=== PATIENT | female | born 2005 | race Caucasian/White ===

== ENCOUNTER 2024-10-18 17:23 | Outpatient (CLI) | payer BC, SELFPAY ==
--- OUTSIDE RECORDS SUMMARY | 2024-10-18 17:29 | XMS_ITS | Clinical Summary ---
Author Organization [facility] Address [address] [place] [address] Care Team Providers Care Manager Strategy Name Role Phone Jessica Heart MD Primary Care Provider Allergies No known active allergies Medications No known medications Active Problems Problem Noted Date Diagnosed Date Acute left ankle pain 12/07/2018 Acute right ankle pain 12/07/2018 Encounters Date Type Department Care Team Description 08/21/2024 9:19 PM CDT - 08/22/2024 12:17 AM CDT Emergency [facility] [address] [place] [address] Hyperemesis gravidarum (Primary Dx) Discharge Disposition: Discharge to home or self care from Last 3 Months Social History Tobacco Use Types Packs/Day Years Used Date Smoking Tobacco: Never Smokeless Tobacco: Never Alcohol Use Standard Drinks/Week Comments Never 0 (1 standard drink = 0.6 oz pur e alcohol) AUDIT-C Answer Date Recorded Frequency of Alcohol Consumption Never 12/08/2018 Average Number of Drinks Not on file 019 Frequency of Binge Drinking Not on file 11/22 Personal Safety Answer Date Recorded Have you ever been in or are you currently in a harmful physical or emotional relationship or is someone making you feel afraid or unsafe? Denies 08/21/2024 Comments Unknown Sex and Gender Information Value Date Recorded Sex Assigned at Not on file Legal Sex Female 12:58 PM CDT Gender Identity Not on file Sexual Orientation Not on file Obstetrics History Last Filed Vital Signs Vital Sign Reading Time Taken Comments Blood Pressure 101/63 08/21/2024 11:00 PM CDT Pulse 86 08/21/2024 11:00 PM CDT Temperature 36.8 C (98.2 F) 08/21/2024 8:35 PM CDT Respiratory Rate 16 08/21/2024 11:00 PM CDT Oxygen Saturation 100% 08/21/2024 11:00 PM CDT Inhaled Oxygen Concentration - - Weight 57.3 kg (126 lb 5.2 oz) 08/21/2024 8:35 P M CDT Height 154.9 cm (5' 1) 12/08/2018 12:10 PM CDT Body Mass Index - - Plan of Treatment Health Maintenance Due Date Last Done Comments Cervical Cancer Screening 2003 Depression Screening 2003 Hepatitis C Screening 2003 DTaP/Tdap/Td Vaccine (6 - Tdap) 06/08/2014 09/25/2008, 09/22/2004, 01/15/2004, Additional history exists HPV Vaccines (1 - 3-dose series) 06/08/2018 Meningococcal B Vaccine (1 of 2 - Standard) 2019 Regular Well Visit/Exam 18-64 06/08/2021 Influenza Vaccine (#1) 10/23/202402/11/200 7, 01/10/2007, 12/19/2004, Additional history exists Hepatitis B Screening Completed 04/15/2004 , 2003, 2003 Pneumococcal vaccine <65 Completed 005, 01/15/2004, 2003, Additional history exists Varicella Vaccines Completed 09/25/2008, 06/24/2004 Meningococcal Vaccine Aged Out No roman irma eligible based on patient's age to complete this topic Procedures Procedure Name Priority Date/Time Associated Diagnosis Comments POCT HCG, URINE Routine 08/21/2024 9:15 PM CDT EGFR STAT 08/21/2024 8:54 PM CDT DIFFERENTIAL AUTO STAT 08/21/2024 8:5 4 PM CDT HCG, BLOOD, QUANTITATIVE STAT 08/21/2024 8:54 PM CDT COMPREHENSIVE METABOLIC PANEL STAT 08/21/2024 8:54 PM CDT CBC WITH AUTO DIFFERENTIAL STAT 08/21/2024 8:54 PM CDT URINALYSIS AND REFLEX TO MICROSCOPIC AND CULTURE STAT 08/21/2024 8:54 PM CDT from Last 3 Months Results * (ABNORMAL) POCT hCG, urine (08/21/2024 9:15 PM CDT) HCG, ur, POC Positive(A) Negative Lot Number [id number] QC Backgroud Clear Acceptable QC Control Line Acceptable Urine 08/21/2024 9:15 PM CDT Gina OBANDO POINT OF CARE TEST ORDERABLES Final Result * eGFR (08/21/2024 8:54 PM CDT) eGFR >90 >=60 mL/min/1. 73 m2 Comment: Interpretive Data Reference Interval Normal >/= 90 mL/min/1.73m2 Mildly decreased* 60 - 89 mL/min/1.73m2 Mildly to moderately decreased 45 - 59 mL/min/1.73m2 Moderately to severely decreased 30 - 44 mL/min/1.73m2 Severely decreased 15 - 29 mL/min/1.73m2 Kidney Failure < 15 mL/min/1.73m2 *Relative to young adult level Estimated glomerular filtration rate is determined by the 2020 CKD-EPI equation recommended by the National Kidney Foundation (A Unifying Approach to GFR Estimation: Recommendations of the NKF-ASK Task Force on Reassessing the Inclusion of Race in Diagnosing Kidney Disease, JASN 2020). The CKD-EPI equation should not be used for patients with unstable renal function and has not been validated in children and those over 70. Current interpretive data was last reviewed 2020. Blood 08/21/2024 8:54 PM CDT 08/21/2024 8:59 PM CDT Kermit Hurd MD LAB BLOOD ORDERABLES nal Result [facility] Department [place] [address] * (ABNORMAL) Differential, auto (08/21/2024 8:54 PM CDT) Neutrophil abs 10.38(H) 1.50 - 6.50 K/cumm Imm gran abs 0.07 0.00 - 0.10 K/cumm [facility] Lymphocyte abs 1.19 0.80 - 3.30 K/cumm [facility] Monocyte abs 0.51 0.20 - 0.80 K/cumm [facility] Eosinophil abs 0.00 0.00 - 0.50 K/cumm [facility] Basophil abs 0.03 0.00 - 0.10 K/cumm [facility] Neutrophil pct 85.2 % [facility] Comment: Interpretive Data Percent cell count reference ranges are not reported, since discordance with absolute values may lead to misinterpretation of CBC data. Current Interpretive Data was last revised on 2017. Imm gran pct 0.6 % [facility] Comment: Interpretive Data Percent cell count reference ranges are not reported, since discordance with absolute values may lead to misinterpretation of CBC data. Current Interpretive Data was last revised on 2017. Lymphocyte pct 9.8 % [facility] Comment: Interpretive Data Percent cell count reference ranges are not reported, since discordance with absolute values may lead to misinterpretation of CBC data. Current Interpretive Data was last revised on 2017. Monocyte pct 4.2 % [facility] Comment: Interpretive Data Percent cell count reference ranges are not reported, since discordance with absolute values may lead to misinterpretation of CBC data. Current Interpretive Data was last revised on 2017. Eosinophil pct 0.0 % [facility] Comment: Interpretive Data Percent cell count reference ranges are not reported, since discordance with absolute values may lead to misinterpretation of CBC data. Current Interpretive Data was last revised on 2017. Basophil pct 0.2 % [facility] Comment: Interpretive Data Percent cell count reference ranges are not reported, since discordance with absolute values may lead to misinterpretation of CBC data. Current Interpretive Data was last revised on 2017. Blood 08/21/2024 8:54 PM CDT 08/21/2024 8:59 PM CDT Kermit Hurd MD LAB BLOOD ORDERABLES Fi nal Result Performing Organization Address [facility] Co de Phone Number [facility] [address] [address] * (ABNORMAL) Urinalysis reflex to microscopic and culture Urine (08/21/2024 8:54 PM CDT) Color, ur Yellow Yellow Clarity, ur Cloudy(A) Clear [facility] Specific gravity, ur 1.029 1.003 - 1.030 [facility] pH, urine 6.0 [facility] Comment: Interpretive Data U rine pH is affected by diet, medications, systemic acid-base disturbances, and renal tubular function. pH may affect urinary stone formation. For example, urine pH below 6.0 may help reduce the tendency for calcium phosphate stones and pH greater than 6.0 may reduce the tendency for uric acid stone formation. Source: [facility] Current Interpretive Data was last revised on 2017 Protein, ur ql Negative Negative [facility] Glucose, ur ql Negative Negative [facility] Ketones, ur 4+(A) Negative [facility] Bilirubin, ur Negative Negative [facility] Blood, ur Negative Negative [facility] Urobilinogen, ur <2.0 <2.0 mg/dL [facility] Nitrite, ur Negative Negative [facility] Leukocyte esterase, ur Negative Negative [facility] UA reflex comment Reflex conditions for microscopic UA and culture not met. [facility] Urine 08/21/2024 8:54 PM CDT 08/21/2024 8:59 PM CDT Kermit Hurd MD LAB MICROBIOLOGY - GENE RAL ORDERABLES Final Result Performing Organization Address [facility]/ZIP Co de Phone Number [facility] [address] [facility] [place] [address] * (ABNORMAL) CBC with auto differential (08/21/2024 8:54 PM CDT) [facility] WBC 12.18(H) 3.80 - 9.90 K/cumm Hgb 13.8 11.9 - 15.5 g/dL [facility] Hct 39.2 35.6 - 45.5 % [facility] Plt 326 150 - 400 K/cumm [facility] MPV 10.2 9.1 - 12.3 fL [facility] RBC 4.84 3.90 - 5.20 M/cumm [facility] MCV 81.0(L) 81.3 - 96.4 fL [facility] MCH 28.5 27.1 - 33.3 pg [facility] MCHC 35.2 32.3 - 35.7 g/dL [facility] RDW CV 13.1 11.1 - 14.9 % [facility] RDW SD 38.0 35.7 - 48.1 fL [facility] NRBC abs 0.00 0.00 - 0.01 K/cumm [facility] Blood 08/21/2024 8:54 PM CDT 08/21/2024 8:59 PM CDT Kermit Hurd MD LAB BLOOD ORDERABLES Fi nal Result [facility] Department [place] [address] * (ABNORMAL) hCG, blood, quantitative (08/21/2024 8:54 PM CDT) [facility] hCG, quant 206,260.0 (H) 0.0 - 5.0 IUnits/L Comment: Interpretive Data Male: < 5 IU/L Non- premenopausal Female: <5 IU/L The Tatyana hCG Beta Quant assay procedure was used. Results from different manufacturers or methods may not be comparable. Serial testing should be performed using the same method. Interpretive Data was last revised on 2023 Blood 08/21/2024 8:54 PM CDT 08/21/2024 8:59 PM CDT us Kermit Hurd MD LAB BLOOD ORDERABLES Fi nal Result Performing Organization Address [facility] Co de Phone Number [facility] [address] [facility] Department [place] [address] * (ABNORMAL) Comprehensive metabolic panel (08/21/2024 8:54 PM CDT) Sodium 137 135 - 145 mmol/L Potassium, pl 3.6 3.3 - 4.9 mmol/L [facility] Chloride 102 97 - 110 mmol/L [facility] CO2 17(L) 22 - 32 mmol/L [facility] Anion gap 18(H) 2 - 15 mmol/L [facility] BUN 10 6 - 25 mg/dL [facility] Creatinine 0.59(L) 0.60 - 1.10 mg/dL [facility] Glucose 100 70 - 199 mg/dL [facility] Comment: Interpretive Data Fasting glucose >/= 126 mg/dl is diagnostic for diabetes. Fasting is defined as no caloric intake for at least 8 hours. Fasting glucose between 100 mg/dl to 125 mg/dl is diagnostic of prediabetes. In a patient with classic symptoms of hyperglycemia or hyperglycemic crisis, a random glucose >/= 200 mg/dl is diagnostic for diabetes. In the absence of unequivocal hyperglycemia, results should be confirmed by repeat testing. The classification and Diagnosis of Diabetes Diabetes Care 202; 46: S19-S40. Current interpretive data was last revised 2022. Calcium 10.3 8.5 - 10.3 mg/dL [facility] Bilirubin, total 0.8 0.1 - 1.2 mg/dL [facility] Protein, pl 7.9 6.5 - 8.5 g/dL [facility] Albumin 5.2(H) 3.5 - 5.0 g/dL [facility] Alk phos 60 40 - 130 Units/L [facility] ALT 22 7 - 45 Units/L [facility] AST 21 10 - 45 Units/L [facility] Blood 08/21/2024 8:54 PM CDT 08/21/2024 8:59 PM CDT Kermit Hurd MD LAB BLOOD ORDERABLES Fi nal Result Performing Organization Address City/[facility]/ZIP Co de Phone Number [facility] [address] [facility] Department [place] [address] from Last 3 Months Insurance [place] [facility] CHOICE [facility] [facility] HMO/PPO Address: [address] [address] [place] [address] Care Teams Manager Strategy Relationship Specialty Start Date End Date Jessica Heart MD [address] [place] [address] PCP - General 12/08/18
--- OUTSIDE RECORDS SUMMARY | 2024-10-18 17:29 | XMS_ITS | Clinical Summary ---
Author Organization [facility] Address [address] [place] [id number] Care Team Providers Care Financial Legal Assistant Name Role Phone Jessica Heart MD Primary Care Provider [phone] Allergies No known active allergies Medications No known medications Active Problems No known active problems Social History Tobacco Use Types Packs/Day Years Used Date Smoking Tobacco: Never Smokeless Tobacco: Never Alcohol Use Standard Drinks/Week Comments Never 0 (1 standard drink = 0.6 oz pur e alcohol) Comments No Sex and Gender Information Value Date Recorded Sex Assigned at Not on file Legal Sex Female 10:39 AM CDT Gender Identity Not on file Sexual Orientation Not on file Last Filed Vital Signs Vital Sign Reading Time Taken Comments Blood Pressure 127/73 11/26/2021 10:48 AM CDT Pulse 90 11/26/2021 10:48 AM CDT Temperature 36.8 C (98.3 F) 11/26/2021 10:48 AM CDT Respiratory Rate 16 11/26/2021 10:48 AM CDT Oxygen Saturation 99% 11/26/2021 10:48 AM CDT Inhaled Oxygen Concentration - - Weight 59 kg (130 lb) 11/26/2021 10:46 AM CDT Height 154.9 cm (5' 1) 11/26/2021 10:46 AM CDT Body Mass Index 24.56 11/26/2021 10:46 AM CDT Plan of Treatment Health Maintenance Due Date Last Done Comments Cervical Cancer Screening Pap Smear (Age 21 to 29) Every 3 Years 2003 Cervical Cancer Screening 2003 Annual Physical 06/08/2006 DTaP, Tdap and Td Vaccines (6 - Tdap) 06/08/2014 09/25/2008, 09/22/2004, 01/15/2004, Additional history exists HPV Vaccines (1 - 3-dose series) 06/08/2018 Meningococcal B Vaccine (1 of 2 - Standard) 2019 Hepatitis C 06/08/2021 COVID-19 Vaccine ( - 2023- season) 2023 Hepatitis B Vaccines Completed 04/15/2004, 2003, 2003 Pneumococcal Vaccine: Pediatrics (0 to 5 Years) and At-Risk Patients (6 to 49 Years) Aged Out 06/24/2004, 01/15/2004, 2003, Additional history exists No longer eligible based on patient's age to complete this topic Meningococcal Vaccine Aged Out No roman irma eligible based on patient's age to complete this topic RSV Immunizations Under 20 Months Aged Out No longer eligible based on patient's age to complete this topic Insurance [facility] Care Teams Financial Legal Assistant Relationship Specialty Start Date End Date Jessica Heart MD [address] [facility] [address] [facility] [address] [place] [id number] PCP - General FAMILY PRACTICE 11/26/21
[2024-10-18 18:33] LABS: Hematocrit 37.4 % (37.0-47.0); Hemoglobin 12.8 g/dL (12.0-15.0); Immature Granulocyte Percent A 1.2 % (0-0.5); Lymphocytes Absolute Auto 1.67 K/mm3 (0.9-3.2); Mean Corpuscular HGB Conc 34.2 g/dl (32-36); Mean Corpuscular Hemoglobin 29.0 pg (26-34); Mean Corpuscular Volume 84.8 fl (80-100); Nucleated Red Blood Cells Absolute Auto 0.000 K/mm3 (0.0-0.012); Nucleated Red Blood Cells Perc 0.0 % (0.0-0.2); Platelet Count Result 305 k/mm3 (150-375); Red Blood Count 4.41 M/mm3 (4.2-5.4); White Blood Count 8.6 K/mm3 (4.5-10.0)
[2024-10-18 19:20] LABS: Syphilis IgG/IgM Antibody Non-Reactive (Nonreactive)
[2024-10-18 19:24] LABS: Hepatitis B Surface Antigen Negative (Negative)
[2024-10-18 19:33] LABS: HIV 1/2 Ab P24 Ag Result Negative (Negative)
[2024-10-18 20:12] LABS: Beta HCG Quantitative 37776.00 mIU/ML
[2024-10-20 07:09] LABS: Cytomegalovirus (CMV) Ab, IgG <0.60 U/mL (0.00-0.59); Cytomegalovirus (CMV) Ab, IgM <30.0 AU/mL (0.0-29.9)
[2024-10-20 14:08] LABS: Varicella-Zoster Ab, IgM <0.91 index (0.00-0.90)
== END 2024-10-18 17:24 | disposition home or self-care (01) ==
PROVIDERS: Visit Provider Student in an Organized Health Care Education/Training Program
DX: N91.2 Amenorrhea, unspecified (principal)
CPT/HCPCS: 36415; 84702; 85025; 86593; 86644; 86645; 86703; 86762; 86787; 86850; 86900; 86901; 87086; 87340; G0432